=== PATIENT | female | born 1990 ===

== ENCOUNTER 2017-07-08 12:33 | Emergency (ER) | payer OTHER ==
[2017-07-08 12:40] VITALS: BMI 29.2
[2017-07-08 13:54] LABS: BASO % 0.5 % (0.0-2.0); EOS # 0.1 K/uL (0.0-0.7); EOS % 0.6 % (0.0-4.0); HEMOGLOBIN 14.6 g/dL (11.0-16.0); LYMPH # 1.5 K/uL (1.0-4.3); MEAN CELL VOLUME 90.4 fL (81.0-99.0); MEAN CORPUSCULAR HEMOGLOBIN 31.1 pg (27.0-31.0); MEAN CORPUSCULAR HGB CONC 34.4 g/dL (33.0-37.0); MEAN PLATELET VOLUME 7.1 fL (7.2-11.7); MONO # 0.8 K/uL (0.0-0.8); MONO % 8.4 % (0.0-10.0); NEUT # 6.6 K/uL (1.8-7.0); NEUT % 73.5 % (50.0-75.0); RBC 4.68 Mil/uL (3.80-5.20); RED CELL DISTRIBUTION WIDTH 12.9 % (11.5-14.5)
[2017-07-08 14:00] LABS: HCG,QUALITATIVE URINE NEGATIVE (NEGATIVE)
[2017-07-08 14:15] LABS: SQUAMOUS EPITHIAL 11 /hpf (0-5); URINE BILIRUBIN NEGATIVE (NEGATIVE); URINE BLOOD 3+ (NEGATIVE); URINE CLARITY Hazy (Clear); URINE COLOR Yellow (YELLOW); URINE GLUCOSE (UA) NORMAL (Normal); URINE LEUKOCYTE ESTERASE NEG Leu/uL (Negative); URINE PROTEIN 1+ mg/dL (NEGATIVE); URINE UROBILINOGEN NORMAL mg/dL (0.2-1.0)
--- NOTE | 2017-07-08 14:17 | RAD ---
PROCEDURE: Radiographs of the chest and abdomen (obstructive series) HISTORY: colicky R abd x 1 day COMPARISON: No prior. TECHNIQUE: AP radiograph of the chest, with upright and supine radiographs of the abdomen. FINDINGS: CHEST: Lungs: Clear. Cardiovascular: Normal size heart. No pulmonary vascular congestion. Pleura: No pleural fluid. No pneumothorax. Other findings: None. ABDOMEN AND PELVIS: Bowel: Unremarkable bowel gas pattern. No evidence of mechanical obstruction. Free air: None. Bones: Unremarkable. Other findings: 4 mm calcification overlying the lower pole of the right renal shadow. 4 mm calcification overlying the lower pole of the left renal shadow. IMPRESSION: Bilateral nephrolithiasis. No focal consolidation or pleural effusion. Unremarkable bowel gas pattern.
[2017-07-08 14:34] LABS: ALBUMIN 4.2 g/dL (3.5-5.0); ALT/SGPT 18 U/L (9-52); AST/SGOT 29 U/L (14-36); BLOOD UREA NITROGEN 12 mg/dL (7-17); CALCIUM 9.3 mg/dl (8.6-10.4); GFR AFRICAN-AMERICAN > 60; GFR NON-AFRICAN AMERICAN > 60; LIPASE 102 U/L (23-300)
--- NOTE | 2017-07-08 14:45 | C.PDOC ---
History Of Present Illness 26-year-old female, presents to the emergency department with complaints of crampy right sided abdominal discomfort. She denies constipation, and states her menstrual cycle will start tomorrow. No other complaints at this time. Time Seen by Provider: 07/08/17 13:14 Chief Complaint (Nursing): Abdominal Pain History Per: Patient History/Exam Limitations: no limitations Past Medical History Reviewed: Historical Data, Nursing Documentation, Vital Signs Vital Signs: Last Vital Signs Temp 98.2 F 07/08/17 15:00 Pulse 77 07/08/17 15:00 Resp 20 07/08/17 15:00 BP 119/77 07/08/17 15:00 Pulse Ox 100 07/08/17 15:00 Surgical History: Tonsillectomy Family History: States: No Known Family Hx - Social History Hx Alcohol Use: No Hx Substance Use: No - Immunization History Hx Tetanus Toxoid Vaccination: No Hx Influenza Vaccination: Yes Hx Pneumococcal Vaccination: No Review Of Systems Constitutional: Negative for: Fever, Chills Cardiovascular: Negative for: Chest Pain Respiratory: Negative for: Shortness of Breath Gastrointestinal: Positive for: Abdominal Pain. Negative for: Vomiting, Constipation Musculoskeletal: Negative for: Back Pain Physical Exam - Physical Exam Appears: Non-toxic, No Acute Distress Skin: Normal Color, Warm, Dry, No Rash Head: Normacephalic Eye(s): bilateral: PERRL Nose: Normal Oral Mucosa: Moist Lips: Normal Appearing Neck: Normal ROM Chest: Symmetrical Cardiovascular: Rhythm Regular, No Murmur Respiratory: Normal Breath Sounds, No Accessory Muscle Use Gastrointestinal/Abdominal: Soft, No Tenderness, No Guarding, No Rebound Extremity: Normal ROM, No Deformity, No Swelling Neurological/Psych: Oriented x3, Normal Speech ED Course And Treatment - Laboratory Results Result Diagrams: 07/08/17 13:49 07/08/17 13:49 Lab Interpretation: Normal (ua + blood c/w menstrual) Urine POC: Negative O2 Sat by Pulse Oximetry: 96 (RA) Pulse Ox Interpretation: Normal - Radiology CXR: Interpreted by Me CXR Interpretation: Yes: No Acute Disease - Other Rad abd x 2 X-Ray: Interpreted by Me, Read By Radiologist (normal stool/gas) Medical Decision Making Medical Decision Making: mild gas/bloating vs menstrual cramps Disposition Doctor Will See Patient In The: Office Counseled Patient/Family Regarding: Studies Performed, Diagnosis - Disposition Referrals: [facility] [Outside] [facility] [Outside] Disposition: HOME/ ROUTINE Disposition Time: 14:44 Condition: GOOD Additional Instructions: evaluacion' normal prueba de embarasso NEGATIVO sigue ibuprofeno para yan namita del abd Sigue con la [facility]- lexii necessario. Instructions: Menstrual Cramps (DC) Forms: [employer] (Malian) Print Language: DANISH - Clinical Impression Clinical Impression: Abdominal pain - Scribe Statement The provider has reviewed the documentation as recorded by the Scribe (Pleon Murdock) All medical record entries made by the Scribe were at my direction and personally dictated by me. I have reviewed the chart and agree that the record accurately reflects my personal performance of the history, physical exam, medical decision making, and the department course for this patient. I have also personally directed, reviewed, and agree with the discharge instructions and disposition.
[2017-07-08 15:01] VITALS: BP 119/77; PULSE 77; RESP 20; TEMP 98.2
[2017-07-08 17:13] VITALS: O2SAT 96
== END 2017-07-08 15:01 | disposition home or self-care (01) ==
LOC: C.ER 12:33
DX: R10.9 Unspecified abdominal pain (principal)

== ENCOUNTER 2017-08-08 23:17 | Emergency (ER) | payer SELFPAY ==
[2017-08-08 23:18] VITALS: BMI 29.2
[2017-08-08 23:26] VITALS: BP 146/89; PULSE 76; RESP 20; TEMP 98.8; O2SAT 100
[2017-08-08] MEDS ORDERED: Tetanus/Diphtheria Toxoids 0.5 ml Syringe IM ONE ×2 (23:41→23:46)
[2017-08-08] MEDS ORDERED: Bacitracin 500 Units/gm Oint Foilpak UD ONE (23:45)
[2017-08-08] MEDS ORDERED: Bacitracin 500 Units/gm Oint Foilpak UD TOP STA (23:52)
--- NOTE | 2017-08-09 00:06 | C.PDOC ---
History Of Present Illness 27 year old female presents to the ER after she accidentally cut her finger on a cheese slicer at work [employer]. Denies weakness or numbness. Time Seen by Provider: 08/08/17 23:28 Chief Complaint (Nursing): Upper Extremity Problem/Injury History Per: Patient History/Exam Limitations: no limitations Onset/Duration Of Symptoms: Hrs Current Symptoms Are (Timing): Still Present Exacerbating Factor(s): Strenuous Use Of Affected Area Recent travel outside of the [place]: No Past Medical History Reviewed: Historical Data, Nursing Documentation, Vital Signs Vital Signs: Last Vital Signs Temp 98.8 F 08/08/17 23:23 Pulse 76 08/08/17 23:23 Resp 20 08/08/17 23:23 BP 146/89 08/08/17 23:23 Pulse Ox 100 08/09/17 00:53 Surgical History: Tonsillectomy Family History: States: Unknown Family Hx - Social History Hx Alcohol Use: No Hx Substance Use: No - Immunization History Hx Tetanus Toxoid Vaccination: No Hx Influenza Vaccination: Yes Hx Pneumococcal Vaccination: No Review Of Systems Musculoskeletal: Positive for: Hand Pain Skin: Positive for: Other (Avulsion) Neurological: Negative for: Weakness, Numbness Physical Exam - Physical Exam Appears: Non-toxic Skin: Warm, Dry Head: Atraumatic, Normacephalic Eye(s): bilateral: Normal Inspection Extremity: Capillary Refill (<2 seconds), Other (Small avulsion laceration to distal right thumb near edge of nail, no nailbed involvement) Pulses: Left Dorsalis Pedis: Normal, Right Dorsalis Pedis: Normal Neurological/Psych: Oriented x3, Normal Speech, Normal Motor, Normal Sensation ED Course And Treatment O2 Sat by Pulse Oximetry: 100 (Room air) Pulse Ox Interpretation: Normal Progress Note: Wound was irrigated with saline and betadine solution, bacitracin applied, and wound was dressed. Motrin and tetanus vaccination administered. Patient given proper wound care instructions and advised to follow up with PMD. Disposition Counseled Patient/Family Regarding: Diagnosis, Need For Followup, Rx Given - Disposition Referrals: [facility] at [facility] [Outside] Disposition: HOME/ ROUTINE Disposition Time: 00:02 Condition: STABLE Additional Instructions: Keep wound clean Follow up in clinic in 2 days for wound check Return to ER if worse Prescriptions: Bacitracin Ointment [Bacitracin] 30 gm TOP BID #1 tube Ibuprofen [Motrin] 600 mg PO Q6H #20 tab Instructions: Wound Care (DC), Common Finger Injuries (DC) Forms: [employer] (Martiniquais) - Clinical Impression Clinical Impression: Laceration of finger - PA / CLINIC ADMINISTRATOR / Resident Statement MD/DO has reviewed & agrees with the documentation as recorded. - Scribe Statement The provider has reviewed the documentation as recorded by the Scribe Anthony Lal All medical record entries made by the Scribe were at my direction and personally dictated by me. I have reviewed the chart and agree that the record accurately reflects my personal performance of the history, physical exam, medical decision making, and the department course for this patient. I have also personally directed, reviewed, and agree with the discharge instructions and disposition.
== END 2017-08-09 00:14 | disposition home or self-care (01) ==
LOC: C.ER 23:17
DX: S61.011A Laceration without foreign body of right thumb without damage to nail, initial encounter (principal); W45.8XXA Other foreign body or object entering through skin, initial encounter

== ENCOUNTER 2018-05-22 20:01 | Emergency (ER) | payer OTHER ==
[2018-05-22 20:02] VITALS: BMI 29.2
[2018-05-22 20:18] VITALS: O2SAT 99
[2018-05-22] MEDS ORDERED: Sodium Chloride 0.9% 1,000 ML IV ONE (21:54)
[2018-05-22 22:25] LABS: BASO % 0.5 % (0.0-2.0); EOS # 0.1 K/uL (0.0-0.7); EOS % 1.4 % (0.0-4.0); HEMOGLOBIN 14.7 g/dL (11.0-16.0); LYMPH # 2.6 K/uL (1.0-4.3); LYMPH % 38.6 % (20.0-40.0); MEAN CELL VOLUME 91.4 fL (81.0-99.0); MEAN CORPUSCULAR HEMOGLOBIN 30.7 pg (27.0-31.0); MEAN CORPUSCULAR HGB CONC 33.6 g/dL (33.0-37.0); MONO # 0.8 K/uL (0.0-0.8); MONO % 11.6 % (0.0-10.0); NEUT # 3.2 K/uL (1.8-7.0); NEUT % 47.9 % (50.0-75.0); RBC 4.79 Mil/uL (3.80-5.20); WHITE BLOOD COUNT 6.7 K/uL (4.8-10.8)
[2018-05-22] MEDS ORDERED: Sodium Chloride 0.9% 1,000 ML ONE (22:26)
[2018-05-22 22:32] LABS: SQUAMOUS EPITHIAL 6 /hpf (0-5); URINE AMORPHOUS SEDIMENT MODERATE /ul (<OCC); URINE BACTERIA MOD (<OCC); URINE BILIRUBIN NEGATIVE (NEGATIVE); URINE BLOOD 2+ (NEGATIVE); URINE CLARITY Hazy (Clear); URINE COLOR Yellow (YELLOW); URINE GLUCOSE (UA) NORMAL (Normal); URINE LEUKOCYTE ESTERASE NEG Leu/uL (Negative); URINE PROTEIN 1+ mg/dL (NEGATIVE); URINE UROBILINOGEN NORMAL mg/dL (0.2-1.0)
[2018-05-22] MEDS ORDERED: Iodixanol 320 MG/ML 100 ML BOTTLE IV ONE ×2 (22:33→23:51)
[2018-05-22 22:43] LABS: ALB/GLOB RATIO 1.3 (1.0-2.1); ALBUMIN 4.1 g/dL (3.5-5.0); ALT/SGPT 10 U/L (9-52); AST/SGOT 30 U/L (14-36); BLOOD UREA NITROGEN 15 mg/dL (7-17); GFR NON-AFRICAN AMERICAN > 60; LIPASE 144 U/L (23-300)
--- NOTE | 2018-05-22 22:44 | C.PDOC ---
History Of Present Illness 27 year old female, whose past medical history presents to the ED for evaluation of nausea s/p dizziness described as vertigo that has been intermittent for 5 days. Patient describes the vertigo as a "room-spinning sensation," like she is "drunk on a ship" only when she moves her head. Patient also complains of right- sided neck pain, periumbilical and epigastric abdominal pain, and one episode of vomiting. Patient admits she has been working out more than usual. She denies fever, chills, chest pain, recent trauma/injuries, or history of similar symptoms in the past. Chief Complaint (Nursing): Abdominal Pain History Per: Patient History/Exam Limitations: no limitations Onset/Duration Of Symptoms: Hrs Location Of Pain/Discomfort: Epigastric, Periumbilical Quality Of Discomfort: "Pain" Associated Symptoms: Vomiting. denies: Fever, Chills, Chest Pain Additional History Per: Patient Past Medical History Reviewed: Historical Data, Nursing Documentation, Vital Signs Vital Signs: Last Vital Signs Temp 98.6 F 05/22/18 20:14 Pulse 95 H 05/22/18 20:14 Resp 20 05/22/18 20:14 BP 120/81 05/22/18 20:14 Pulse Ox 99 05/22/18 20:14 - Medical History PMH: No Chronic Diseases Surgical History: Tonsillectomy Family History: States: Unknown Family Hx - Social History Hx Alcohol Use: No Hx Substance Use: No - Immunization History Hx Tetanus Toxoid Vaccination: No Hx Influenza Vaccination: Yes Hx Pneumococcal Vaccination: No Review Of Systems Cardiovascular: Negative for: Chest Pain Gastrointestinal: Positive for: Nausea, Vomiting, Abdominal Pain (periumbilical, epigastric ) Musculoskeletal: Positive for: Neck Pain (right-sided ) Neurological: Positive for: Dizziness Physical Exam - Physical Exam Appears: Non-toxic, No Acute Distress Skin: Normal Color, Warm, Dry Head: Atraumatic, Normacephalic Eye(s): bilateral: Normal Inspection, PERRL, EOMI Oral Mucosa: Moist Neck: Normal ROM, Supple Chest: Symmetrical, No Deformity, No Tenderness Cardiovascular: Rhythm Regular, No Murmur Respiratory: Normal Breath Sounds, No Rales, No Rhonchi, No Wheezing Gastrointestinal/Abdominal: Soft, Tenderness (epigastric and periumbilical ), No Guarding, No Rebound Extremity: Normal ROM, Capillary Refill (less than 2 seconds ) Neurological/Psych: Oriented x3, Normal Speech, Normal Cognition ED Course And Treatment - Laboratory Results Result Diagrams: 05/22/18 22:21 05/22/18 22:21 Lab Results: Total Bilirubin 0.3 mg/dL (0.2-1.3) 05/22/18 22:21 AST 30 U/L (14-36) 05/22/18 22:21 ALT 10 U/L (9-52) 05/22/18 22:21 Alkaline Phosphatase 98 U/L (38-126) 05/22/18 22:21 Total Protein 7.4 g/dL (6.3-8.3) 05/22/18 22:21 Albumin 4.1 g/dL (3.5-5.0) 05/22/18 22:21 Globulin 3.2 gm/dL (2.2-3.9) 05/22/18 22:21 Albumin/Globulin Ratio 1.3 (1.0-2.1) 05/22/18 22:21 Lipase 144 U/L (23-300) 05/22/18 22:21 Urine Color Yellow (YELLOW) 05/22/18 22:10 Urine Clarity Hazy (Clear) 05/22/18 22:10 Urine pH 8.0 (5.0-8.0) 05/22/18 22:10 Ur Specific [place] 1.016 (1.003-1.030) 05/22/18 22:10 Urine Protein 1+ mg/dL (NEGATIVE) H 05/22/18 22:10 Urine Glucose (UA) Normal mg/dL (Normal) 05/22/18 22:10 Urine Ketones Negative mg/dL (NEGATIVE) 05/22/18 22:10 Urine Blood 2+ (NEGATIVE) H 05/22/18 22:10 Urine Nitrate Negative (NEGATIVE) 05/22/18 22:10 Urine Bilirubin Negative (NEGATIVE) 05/22/18 22:10 Urine Urobilinogen Normal mg/dL (0.2-1.0) 05/22/18 22:10 Ur Leukocyte Esterase Neg Marquez/uL (Negative) 05/22/18 22:10 Urine RBC (Auto) 17 /hpf (0-3) H 05/22/18 22:10 Ur Squamous Epith Cells 6 /hpf (0-5) H 05/22/18 22:10 Amorphous Sediment Moderate /ul (<OCC) H 05/22/18 22:10 Urine Bacteria Mod (<OCC) H 05/22/18 22:10 Urine HCG, Qual Negative (NEGATIVE) 05/22/18 22:10 Urine HCG, Qual Negative (NEGATIVE) 05/22/18 22:10 O2 Sat by Pulse Oximetry: 99 (on RA) Pulse Ox Interpretation: Normal Medical Decision Making Medical Decision Makin yr old F w/ no ppmhx p/w abdominal pain and vertigo like symptoms. RLQ abdominal pain. No fall or trauma. No YEE. No neck stiffness. Differential diagnoses include but are not limited to: BPV vs gastritis Progress: Bloodwork, urinalysis, flu swab, CT Head, CT A/P, and EKG ordered and reviewed. Zofran IVP and IV Fluids given. EKG: Normal Sinus rhythm at rate 80bpm. No STEMI. Imaging, labs unremarkable repeat abd exam unremarkable. Non-ttp. no peritoneal signs or rebound remains w/ out meningeal signs repeat neuro exam remains unremarkable. NO signs of central vertigo. Normal finger to nose, heel to waters, and normal strong gait Pt notes no current symptoms. clear for d/c home w/ f/u return indications. Pt agreeable to plan. Disposition - Disposition Referrals: Eleanor Keller MD [Staff Provider] - Tam Smith MD [Staff Provider] - Ghanshyam Nesbitt MD [Staff Provider] - [facility] [Outside] [facility] [Outside] [facility] [Outside] Disposition: HOME/ ROUTINE Disposition Time: 02:05 Condition: GOOD Additional Instructions: OSCAR GOFF, thank you for letting us take care of you today. Your provider was Jean Nation and you were treated for STOMACH PAINS. The emergency med ica care you received today was directed at your acute symptoms. If you were prescribed any medication, please fill it and take as directed. It may take several days for your symptoms to resolve. Return to the Emergency Department if your symptoms worsen, do not improve, or if you have any other problems. Please contact your doctor or call one of the physicians/clinics you have been referred to that are listed on the Patient Visit Information form that is included in your discharge packet. Bring any paperwork you were given at discharge with you along with any medications you are taking to your follow up visit. Our treatment cannot replace ongoing medical care by a primary care provider outside of the emergency department. Thank you for allowing the [facility] team to be part of your care today. If you had an X-Ray or CT scan: A Radiologist will review the ED reading if any change in treatment is needed we will contact you. If you had a blood, urine, or wound culture: It will take several days for the results, if any change in treatment is needed we will contact you. If you had an STI test: It will take 48 hours for the results. Please call after 1 week if you have not heard back. Prescriptions: Meclizine [Antivert] 12.5 mg PO Q12H PRN 2 Days #4 tab PRN Reason: dizziness Instructions: Vertigo (a Type of Dizziness), Blood in the Urine (Hematuria) in Adults, Acute Abdomen (Belly Pain), Adult (DC) Forms: [employer] (Georgian) Print Language: [place] - Clinical Impression Clinical Impression: Abdominal pain, Hematuria, BPPV (benign paroxysmal positional vertigo) - Scribe Statement The provider has reviewed the documentation as recorded by the Scribe (Aviva Castillo) Provider Attestation: All medical record entries made by the Scribe were at my direction and personally dictated by me. I have reviewed the chart and agree that the record a ccurately reflects my personal performance of the history, physical exam, medical decision making, and the department course for this patient. I have also personally directed, reviewed, and agree with the discharge instructions and disposition.
[2018-05-23 02:16] VITALS: BP 123/79; PULSE 79; RESP 16; TEMP 97.8
--- NOTE | 2018-05-23 08:21 | CT ---
Date of service: 05/23/2018 PROCEDURE: CT HEAD WITHOUT CONTRAST. HISTORY: Vertigo COMPARISON: None available. TECHNIQUE: Axial computed tomography images were obtained through the head/brain without intravenous contrast. Radiation dose: Total exam DLP = 1062.61 mGy-cm. This CT exam was performed using one or more of the following dose reduction techniques: Automated exposure control, adjustment of the mA and/or kV according to patient size, and/or use of iterative reconstruction technique. FINDINGS: HEMORRHAGE: No intracranial hemorrhage. BRAIN: Weathers-white matter differentiation is preserved. There is no mass, mass effect or abnormal extra-axial fluid collection. There is no territorial infarction. The midline sagittal structures are normal. VENTRICLES: The ventricles are normal in size, shape and configuration. CALVARIUM: There is no calvarial fracture or extracranial soft tissue swelling. PARANASAL SINUSES: Predominantly clear. MASTOID AIR CELLS: Predominantly clear. OTHER FINDINGS: None. IMPRESSION: No acute intracranial abnormality. A preliminary report was provided by [employer].
--- NOTE | 2018-05-23 08:42 | CT ---
Date of service: 05/23/2018 PROCEDURE: CT Abdomen and Pelvis with contrast HISTORY: periumiblical pain COMPARISON: The the the TECHNIQUE: CT scan of the abdomen and pelvis was performed after administration of intravenous contrast. Oral contrast was not administered. Coronal and sagittal reformatted images were obtained. Contrast dose: Radiation dose: Total exam DLP = 992.7 mGy-cm. This CT exam was performed using one or more of the following dose reduction techniques: Automated exposure control, adjustment of the mA and/or kV according to patient size, and/or use of iterative reconstruction technique. FINDINGS: LOWER THORAX: The visualized lungs are clear. LIVER: Normal in size with homogeneous enhancement. No gross lesion or ductal dilatation. GALLBLADDER AND BILE DUCTS: The gallbladder is contracted. PANCREAS: Normal in size with homogeneous enhancement. No gross lesion or ductal dilatation. SPLEEN: Normal in size and appearance. ADRENALS: No discrete nodule. KIDNEYS AND URETERS: Normal in size with homogeneous enhancement. No hydronephrosis. No solid mass. There are punctate nonobstructing stones in both kidneys, the largest in the right lower pole measures 4 mm. VASCULATURE: No aortic aneurysm. There are no aortic atherosclerotic calcifications or mural plaque present. BOWEL: Evaluation of the bowel is limited in the absence of oral contrast. The small bowel loops are normal in caliber. There is moderate amount of stool in the colon. No bowel wall thickening or obstruction. APPENDIX: Normal appendix. PERITONEUM: No free fluid. No free air. LYMPH NODES: No enlarged lymph nodes. BLADDER: Well distended and normal in appearance. REPRODUCTIVE: The uterus is normal in size. BONES: No acute fracture. Within normal limits for the patient's age. OTHER FINDINGS: None. IMPRESSION: 1. Punctate nonobstructing stones in both kidneys, the largest in the right lower pole measures 4 mm. No obstructive uropathy. 2. Constipation. No evidence for bowel obstruction. A preliminary report was provided by [employer].
--- NOTE | 2018-05-23 11:04 | CARD ---
APPROVED REPORT Date of service: 05/22/2018 EKG Measurement Heart [id number] <Conclusion> Normal sinus rhythm Normal ECG
== END 2018-05-23 02:21 | disposition home or self-care (01) ==
LOC: C.ER 20:01
DX: R10.13 Epigastric pain (principal); H81.10 Benign paroxysmal vertigo, unspecified ear; R31.9 Hematuria, unspecified
CPT/HCPCS: 70450; 74177; 80053; 81001; 83690; 84703; 85025; 87804; 93005; 96361; 96374; 99285; J2405; J7030; Q9967